=== PATIENT | male | born 1980 | race Caucasian/White ===

== ENCOUNTER 2020-10-08 14:02 | Emergency (ER) | payer SELFPAY ==
[~2020-10-08] VITALS: Ht 188 cm; Wt 106.6 kg
== END 2020-10-08 14:26 | disposition home or self-care (01) ==
LOC: ER 14:02
DX: S60.454A Superficial foreign body of right ring finger, initial encounter (principal); X58.XXXA Exposure to other specified factors, initial encounter
CPT/HCPCS: 99282